=== PATIENT | male | born 1995 | race Two or more races ===

== ENCOUNTER → 2021-04-11 | Outpatient (REF) | payer OTHER | LOC: M SMT 17:09 | PROVIDERS: ATTEND Urology | DX: Z30.2 Encounter for sterilization (principal) ==

== ENCOUNTER → 2021-06-27 | Outpatient (REF) | payer OTHER ==
[2021-06-27 14:31] LABS: SEMEN APPEARANCE OPAQUE (OPAQUE); SEMEN VISCOSITY LIQUID (LIQUID); WBC CONCENTRATION <=1 M/ml (<=1 M/ml)
== END ==
LOC: M SMT 14:08
PROVIDERS: ATTEND Urology
DX: Z30.8 Encounter for other contraceptive management (principal)

== ENCOUNTER 2024-03-24 07:11 | Day surgery (SDC) | payer OTHER ==
[~2024-03-24] VITALS: Ht 175.3 cm; Wt 103.2 kg
[~2024-03-24 07:11] MED LIST: ALBU2.5V10 INH; ALBU8.5H INH; FLUT1BLS5 INH; LEXA1TAB PO; LIDOCAINE 2% 100MG/5ML SDV (FOR ANES.) As Ordered ONE; MONT10TA97 PO; OMEP40CA5 PO; SPIR12.9 INH; VITA500C24 PO; fentaNYL 100 MCG/2 ML INJECTION As Ordered ONE; propofoL 200 MG/20 ML VIAL As Ordered ONE
[2024-03-24] MEDS: IPRATROPIUM 0.5MG/ALBUTEROL 2.5MG INH SOL UD 3ML (DUONEB) NEB STA (08:29)
[2024-03-24 08:48] VITALS: BP 138/75; O2SAT 100
== END 2024-03-24 08:49 | disposition home or self-care (01) ==
LOC: M OPP 07:11
PROVIDERS: ATTEND Surgery
DX: R12 Heartburn (principal); K22.89 Other specified disease of esophagus; K29.50 Unspecified chronic gastritis without bleeding; Z79.51 Long term (current) use of inhaled steroids; Z79.899 Other long term (current) drug therapy; J45.909 Unspecified asthma, uncomplicated
CPT/HCPCS: 43239; 88305; J3010